=== PATIENT | female | born 1985 | race Caucasian/White ===

== ENCOUNTER 2019-06-09 09:53 | Emergency (ER) | payer BC ==
[2019-06-09 10:09] VITALS: BP 116/45
--- NOTE | 2019-06-09 10:18 | UC ---
Throat Pain/Nasal Ernie HPI - HPI Summary HPI Summary: 34-year-old female who has had head congestion runny nose and ear pain for the past 3 days. She is approximately 12 weeks gestation with her third . - History of Current Complaint Chief Complaint: UCGeneralIllness Stated Complaint: COUGH, EAR PAIN, SINUS PRESSURE Time Seen by Provider: 06/09/19 10:09 Hx Obtained From: Patient Hx Last Menstrual Period: end of january ?: Yes Onset/Duration: Gradual Onset Severity: Mild Pain Intensity: 5 Cough: Nonproductive Associated Signs & Symptoms: Positive: Sinus Discomfort, Nasal Discharge - Allergies/Home Medications Allergies/Adverse Reactions: Allergies Allergy/AdvReac Type Severity Reaction Status Date / Time No Known Allergies Allergy Verified 06/09/19 10:09 Home Medications: Home Medications Acetaminophen TAB* [Tylenol TAB*] 650 mg PO PRN 06/09/19 [History] Loratadine [Claritin] 10 mg PO PRN 06/09/19 [History] Prenatals 1 dose PO DAILY 06/09/19 [History] PMH/Surg Hx/FS Hx/Imm Hx Previously Healthy: Yes - Surgical History Surgical History: None Surgery Procedure, Year, and Place: Broken bones in the past - Family History Known Family History: Positive: Hypertension - Social History Alcohol Use: None Substance Use Type: None Smoking Status (MU): Never Smoked Tobacco Review of Systems All Other Systems Reviewed And Are Negative: Yes ENT: Positive: Ear Ache, Nasal Discharge, Sinus Congestion Respiratory: Positive: Cough - Nonproductive cough. Is Patient Immunocompromised?: No Physical Exam Triage Information Reviewed: Yes Appearance: Well-Appearing, No Pain Distress, Well-Nourished Vital Signs: Initial Vital Signs Temp 98.4 F 06/09/19 10:04 Pulse 88 06/09/19 10:04 Resp 16 06/09/19 10:04 BP 116/45 06/09/19 10:04 Pulse Ox 99 06/09/19 10:04 Vital Signs Reviewed: Yes Eyes: Positive: Conjunctiva Clear ENT: Positive: Hearing grossly normal, Pharynx normal, Nasal congestion, Nasal drainage - Clear nasal drainage, TMs normal, Uvula midline. Negative: Tonsillar swelling, Tonsillar exudate, Trismus, Muffled voice, Hoarse voice Neck: Positive: Supple, Nontender, No Lymphadenopathy Respiratory: Positive: Lungs clear, Normal breath sounds, No respiratory distress, No accessory muscle use Cardiovascular: Positive: RRR, No Murmur, Pulses Normal, Brisk Capillary Refill Musculoskeletal Exam: Normal Neurological Exam: Normal Psychological Exam: Normal Skin Exam: Normal Throat Pain/Nasal Course/Dx - Course Course Of Treatment: Patient is comfortable here. I feel this is a viral Upper respiratory infection can be treated with comfort measures. - Differential Dx/Diagnosis Provider Diagnosis: URI (upper respiratory infection) Discharge - Sign-Out/Discharge Documenting (check all that apply): Patient Departure All imaging exams completed and their final reports reviewed: No Studies - Discharge Plan Condition: Good Disposition: HOME Patient Education Materials: Upper Respiratory Infection (DC) Referrals: [facility] [Outside] No Primary Care Phys,NOPCP [Primary Care Provider] - Additional Instructions: Increase fluids, rest, throat lozenges, warm saltwater gargles, may take Tylenol for fever or pain. Follow-up with your primary care provider if no improvement in 4 or 5 days. - Billing Disposition and Condition Condition: GOOD Disposition: Home - Attestation Statements Provider Attestation: This patient was not seen by me. I was available for consult. ARON
== END 2019-06-09 10:34 | disposition home or self-care (01) ==
LOC: UCCORT 09:53
DX: J06.9 Acute upper respiratory infection, unspecified (principal); O99.511 Diseases of the respiratory system complicating pregnancy, first trimester; Z3A.12 12 weeks gestation of pregnancy
CPT/HCPCS: 99211; G0463

== ENCOUNTER 2024-09-10 07:30 | Observation (INO) ==
[2024-09-18] MEDS ORDERED: Lidocaine 1% w EPI 1:200,000 SDV 30 ML VIAL ONE (02:47)
[2024-09-18] MEDS ORDERED: Thrombin 5,000 UNITS 1 APPLIC KIT - topical use - TOPICAL ONE (02:47)
[2024-09-18] MEDS ORDERED: ceFAZolin VIAL VIAL ONE (02:49)
[2024-09-18] MEDS ORDERED: ceFAZolin 2 GM PREMIX 2 GM/50 ML BAG ONE (06:11)
[2024-09-18] MEDS ORDERED: Chlorhexidine MOUTHWASH 0.12% 15 ML UDC ONE (06:11)
[2024-09-18 06:18] LABS: Rapid COVID-19 Molecular Undetected (Undetected)
[2024-09-18] MEDS ORDERED: fentaNYL 100 mcg/2 ml 50 MCG/ML VIAL ONE ×3 (07:16→10:49)
[2024-09-18] MEDS ORDERED: Ondansetron 4 mg VIAL 2 MG/ML 2 ml VIAL ONE (07:16)
[2024-09-18] MEDS ORDERED: Midazolam 2 mg/2 ml VIAL 1 mg/ml 2 ml VIAL (2 mg) ONE (07:16)
[2024-09-18] MEDS ORDERED: Rocuronium 50 mg VIAL 10 mg/ml 5 ml VIAL (50 mg) ONE ×2 (07:16→09:42)
[2024-09-18] MEDS ORDERED: Propofol 10 MG/ML 20 ML BTL ONE (07:16)
[2024-09-18] MEDS ORDERED: Dexamethasone IV 4 MG/ML VIAL 1 ml VIAL ONE (07:16)
[2024-09-18] MEDS ORDERED: Lidocaine 2% PF 5 ML VIAL ONE (07:22)
[2024-09-18] MEDS ORDERED: Ondansetron 4 mg VIAL 2 MG/ML 2 ml VIAL IV PRN ×2 (08:20→10:44)
[2024-09-18] MEDS ORDERED: Naloxone 0.4 mg VIAL 0.4 mg/ml 1 ml VIAL IV PRN (08:20)
[2024-09-18] MEDS ORDERED: Metoclopramide 5 MG/ML VIAL (10 mg) IV PRN (08:20)
[2024-09-18] MEDS ORDERED: Dexmedetomidine 200 mcg/2 ml 2 ml VIAL (200 mcg) ONE (08:21)
[2024-09-18] MEDS ORDERED: Phenylephrine 40 mcg/mL 10mL (400mcg) SYRINGE ONE ×2 (08:31→09:14)
[2024-09-18] MEDS ORDERED: NS 0.45% 1000 ml BAG 1,000 ML IV SCH (09:00)
[2024-09-18] MEDS ORDERED: Phenol 1.4% Throat Spray BTL MT PRN (10:44)
[2024-09-18] MEDS ORDERED: Calcium Carb (TUMS) 500 mg CHEW TAB PO PRN (10:44)
[2024-09-18] MEDS ORDERED: Morphine 2 MG/ML SYRINGE IV PRN (10:44)
[2024-09-18] MEDS ORDERED: Benzocaine/Menthol LOZ MT PRN (10:44)
[2024-09-18] MEDS ORDERED: Senna TAB 8.6 mg TAB PO PRN (10:44)
[2024-09-18] MEDS ORDERED: Dextran 70/Hypromellose Tears Eye Drops 15 ml BTL (for Artificials Tears) BOTH EYES PRN (10:44)
[2024-09-18] MEDS: fentaNYL 100 mcg/2 ml 50 MCG/ML VIAL IV PRN (10:50)
[2024-09-18] MEDS: Acetaminophen IV 1 GM/100ML 1,000 MG/100 ML BAG IV ONE (11:30)
[2024-09-18] MEDS: Buffered Lidocaine 1% SYRIN 1 ml INTRADERM ONE (11:30)
[2024-09-18] MEDS: Scopolamine 1 mg/72hr PATCH TRANSDERM ONE (11:30)
[2024-09-18] MEDS: Lactated Ringers 1000 ml BAG 1,000 ML IV SCH ×2 (11:30→12:42)
[2024-09-19 11:56] VITALS: BP 94/54
== END 2024-09-19 12:30 | disposition home or self-care (01) ==
LOC: INTOOBSV 09-18 05:29 → AA 09-18 05:29 → SSU 09-18 12:04
PROVIDERS: ADMIT Neurological Surgery; ATTEND Neurological Surgery